=== PATIENT | female | born 1945 | race Caucasian/White ===

== ENCOUNTER 2017-05-06 20:22 | Emergency (ER) | payer MEDICARE, OTHER ==
[~2017-05-06 20:22] MED LIST: AMB5 PO; DEMA10T PO; DURICEF; DURICEF PO; FISH-EPA1000 MG PO; GOLD BOND TOP; HALF81 PO; KLOR-CON 1010 MEQ PO; LOP25 PO; M-END DM PO; MOBIC7.5 PO; NITROSTAT0.4 MG SL; NORCO1 TA1 PO; PRAVACHOL40 MG PO; PRIN5 PO; VITAINJ IM; VITAMIN D31000 UNIT PO; VITC500 PO; ZESTORETIC1 TA1 PO; ZETIA PO
[2017-05-06 22:12] LABS: BASOPHILS 0.4 %; BASOPHILS ABSOLUTE 0.03 10/3/uL (0.0-0.16); EOSINOPHILS 0.5 %; EOSINOPHILS ABSOLUTE 0.04 10/3/uL (0.0-0.53); HEMOGLOBIN 11.3 g/dL (12.0-16.0); IMMATURE GRANULOCYTES 6.7 %; IMMATURE GRANULOCYTES ABSOLUTE 0.55 10/3/uL (0.0-0.11); LYMPHOCYTES 12.5 %; LYMPHOCYTES ABSOLUTE 1.02 10/3/uL (0.67-4.30); MEAN CORPUS HGB CONC 34.2 g/dL (32.0-36.0); MEAN CORPUSCULAR HEMOGLOB 33.4 pg (26.0-34.0); MEAN CORPUSCULAR VOLUME 97.6 fL (80-100); MEAN PLATELET VOLUME 11.3 fL (9.2-13.0); MONOCYTES 17.9 %; MONOCYTES ABSOLUTE 1.46 10/3/uL (0.21-1.20); NEUTROPHILS ABSOLUTE 5.05 10/3/uL (2.02-8.40); RBC DISTRIBUTION WIDTH 14.1 % (12.0-16.0); RED CELL COUNT 3.38 10/6/uL (4.0-5.6); WHITE BLOOD CELLS 8.2 10/3/uL (4.5-10.5)
[2017-05-06 22:13] LABS: MANUAL DIFF NO %; PLATELET COUNT 154 10/3/uL (150-400)
[2017-05-06 22:26] LABS: A/G RATIO 0.8 (0.7-1.9); ALBUMIN 2.8 G/DL (3.5-5.0); ALKALINE PHOSPHATASE 114 U/L (45-117); BUN (BLOOD UREA NITROGEN) 8 MG/DL (6-23); CALCIUM, SERUM 8.5 MG/DL (8.5-10.4); CHLORIDE, SERUM 103 MMOL/L (96-112); CO2 (CARBON DIOXIDE) 28 MMOL/L (24-34); CREATININE 0.71 MG/DL (0.55-1.02); GFR AFRICAN AMERICAN 99 ML/MIN (>=60); GFR NON AFRICAN AMERICAN 86 ML/MIN (>=60); GLOBULIN 3.6 G/DL (2.5-4.1); GLUCOSE, SERUM 127 MG/DL (60-99); POTASSIUM, SERUM 3.8 MMOL/L (3.5-5.3); SGOT(AST) 39 U/L (5-40); SGPT(ALT) 30 U/L (5-65); SODIUM, SERUM 139 MMOL/L (135-148); TOTAL BILIRUBIN 0.5 MG/DL (0-1.2); TOTAL PROTEIN 6.4 G/DL (6.0-8.5)
[2017-05-06 22:34] LABS: BAND NEUTROPHILS 7 %; ER DIFF TAT 0 Hrs 26 Mins; IMMATURE GRANS ABSOLUTE (CALC) 0.08 10/3/uL (0.0-0.11); LYMPHOCYTES 9 %; LYMPHOCYTES ABSOLUTE (CALC) 0.74 10/3/uL (0.67-4.30); METAMYELOCYTES 1 %; MONOCYTES 16 %; MONOCYTES ABSOLUTE (CALC) 1.31 10/3/uL (0.21-1.20); NEUTROPHILS ABSOLUTE (CALC) 6.07 10/3/uL (2.02-8.40); PLATELET ESTIMATE ADQ (ADEQUATE); REACTIVE LYMPHS OCC (0-2%) (0-5%); SEGMENTED NEUTROPHIL (0) 67 %; TOTAL NUCLEATED CELLS 100; TOXIC GRANULATION 1+
[2017-05-06 22:35] LABS: RBC MORPHOLOGY NORM (NORMAL)
[2017-05-06 22:44] LABS: ASCORBIC ACID (UR NOT ORDER) 40 (NEG); BILIRUBIN, URINE NEGATIVE (NEG); ER URINALYSIS TAT 0 Hrs 13 Mins; KETONE, URINE TRACE MG/DL (NEG); LEUKOCYTE ESTERASE(NOT OR NEG (NEG); NITRITE (URINE) NEG (NEG); WBC (NOT ORDERED) (RFLEX) 14 (0-5)
[2017-07-23] MEDS ORDERED: ZETIA PO (15:17)
== END 2017-05-07 01:11 | disposition home or self-care (01) ==
LOC: ER 20:22
PROVIDERS: Emergency Medicine
DX: N39.0 Urinary tract infection, site not specified (principal); F17.200 Nicotine dependence, unspecified, uncomplicated; I10 Essential (primary) hypertension; C50.911 Malignant neoplasm of unspecified site of right female breast; E78.5 Hyperlipidemia, unspecified; Z88.8 Allergy status to other drugs, medicaments and biological substances; Z88.5 Allergy status to narcotic agent; Z79.82 Long term (current) use of aspirin; Z79.899 Other long term (current) drug therapy; Z86.718 Personal history of other venous thrombosis and embolism
CPT/HCPCS: 71010; 80053; 81001; 85025; 87040; 96374; 99284

== ENCOUNTER 2017-07-28 06:39 | Day surgery (SDC) | payer MEDICARE, OTHER ==
[2017-07-23 10:51] LABS: BASOPHILS 0.3 %; BASOPHILS ABSOLUTE 0.01 10/3/uL (0.0-0.16); EOSINOPHILS 1.6 %; EOSINOPHILS ABSOLUTE 0.06 10/3/uL (0.0-0.53); IMMATURE GRANULOCYTES 0.3 %; IMMATURE GRANULOCYTES ABSOLUTE 0.01 10/3/uL (0.0-0.11); LYMPHOCYTES 35.7 %; MEAN CORPUSCULAR HEMOGLOB 33.9 pg (26.0-34.0); MEAN CORPUSCULAR VOLUME 99.8 fL (80-100); MEAN PLATELET VOLUME 10.4 fL (9.2-13.0); MONOCYTES 12.6 %; MONOCYTES ABSOLUTE 0.46 10/3/uL (0.21-1.20); NEUTROPHILS 49.5 %; RBC DISTRIBUTION WIDTH 13.2 % (12.0-16.0); WHITE BLOOD CELLS 3.6 10/3/uL (4.5-10.5)
[2017-07-23 10:52] LABS: HEMATOCRIT 40.9 % (36.0-48.0); HEMOGLOBIN 13.9 g/dL (12.0-16.0); MANUAL DIFF NO %; PLATELET COUNT 205 10/3/uL (150-400)
[2017-07-23 11:00] LABS: A/G RATIO 0.8 (0.7-1.9); ALBUMIN 3.3 G/DL (3.5-5.0); BUN (BLOOD UREA NITROGEN) 10 MG/DL (6-23); CALCIUM, SERUM 9.3 MG/DL (8.5-10.4); CHLORIDE, SERUM 102 MMOL/L (96-112); CO2 (CARBON DIOXIDE) 29 MMOL/L (24-34); CREATININE 0.63 MG/DL (0.55-1.02); GFR AFRICAN AMERICAN 105 ML/MIN (>=60); GFR NON AFRICAN AMERICAN 90 ML/MIN (>=60); GLOBULIN 3.9 G/DL (2.5-4.1); GLUCOSE, SERUM 105 MG/DL (60-99); POTASSIUM, SERUM 3.9 MMOL/L (3.5-5.3); SGOT(AST) 33 U/L (5-40); SGPT(ALT) 32 U/L (5-65); SODIUM, SERUM 137 MMOL/L (135-148); TOTAL BILIRUBIN 0.4 MG/DL (0-1.2); TOTAL PROTEIN 7.2 G/DL (6.0-8.5)
[2017-07-23 11:01] LABS: ALKALINE PHOSPHATASE 81 U/L (45-117)
[~2017-07-28] VITALS: Ht 154.9 cm; Wt 83.0 kg
--- NOTE | ~2017-07-28 | OP ---
Record Of Operation [facility] [address] [place]. [address] NAME: GUNJAN MAR : 45 STATUS : [facility]#: [id number] AGE: 71 ADM/REG DATE : 07/28/17 MR#: [id number] REPORT SERV DATE: 08/09/17 DICTATED BY: RADHA PLATA DATE: 08/09/17 REPORT STATUS : Draft TRANSCRIBED BY: HEIDY DATE: 08/09/17 DATE OF PROCEDURE: 07/28/2017 PREOPERATIVE DIAGNOSIS: Right breast locally advanced breast cancer. POSTOPERATIVE DIAGNOSIS: Right breast locally advanced breast cancer. PROCEDURE: 1. Right breast simple mastectomy. 2. [place] lymph node biopsy. 3. Right axillary completion dissection. INDICATION FOR THE PROCEDURE: Ms. Mar is a 71-year-old female, with a history of a stage IV left breast cancer in 1997, treated with mastectomy, chemotherapy, and radiation. She has been diagnosed with a right breast cancer which is a grade 3, ER/MI positive, HER2 negative breast cancer with a high growth fraction. She was node positive on initial diagnosis. She underwent a portion of her chemotherapy neoadjuvantly, but was unable to tolerate the full therapy cycles. She has decided to move forward with surgery now. She presented for lymphoscintigraphy scan yesterday showing good uptake in the right axilla. OPERATIVE FINDINGS: After appropriate consent was noted on the chart, the patient was taken to the operating room in supine position. She was placed under general anesthesia without any complications. Her right chest wall and axilla were prepped and draped in sterile fashion. An incision was made in elliptical fashion to encompass the majority of the anterior skin on the chest wall, as well as the nipple-areolar complex. Sharp dissection was carried down to the level of breast parenchyma and flaps created in all directions to the extent of the breast parenchyma. Dissection was carried down to the level of the pectoralis major fascia which was taken off the muscle with the breast intact. The breast was divided from the axillary fat pad at the axillary tail, and it was marked with a stitch and sent for permanent pathology. The right axillary sentinel lymph node was taken that was grossly abnormal, and Pathology did note to have 3.1 cm of breast cancer in that lymph node. No external extension was seen, due to the fact that this patient had asked, but I did not perform an axillary dissection, I did feel for any other abnormal lymph nodes. They were felt to be at least two to three additional lymph nodes which were grossly abnormal. I did a limited dissection of the axillary fat pad. The axillary vein was found coursing in its normal anatomic position superiorly, and the thoracodorsal bundle and long thoracic nerve were spared. This was sent for permanent pathology without marking sutures. The wound was copiously irrigated with warm saline. Hemostasis was achieved. Local anesthetic was infiltrated into the muscle, skin, and soft tissue. The drain was placed in the inferior midaxillary line. The incision was closed in two layers of suture and the skin was cleansed and dried. Mastisol and Steri-Strips were placed on the skin. Incision burn fluff and a binder placed on the patient prior to awakening. At the end of the case all counts were correct. ESTIMATED BLOOD LOSS: 150 mL. Record Of Operation [address] [address] NAME: GUNJAN MAR CHASIDY : 45 STATUS : [facility] PAT#: [id number] AGE: 71 ADM/REG DATE : 07/28/17 MR#: [id number] REPORT SERV DATE: 08/09/17 DICTATED BY: RADHA PLATA DATE: 08/09/17 REPORT STATUS : Draft TRANSCRIBED BY: HEIDY DATE: 08/09/17 COMPLICATIONS: None. SPECIMEN: Right breast, right axillary sentinel lymph node x1, and right axillary content. SARA/HEIDY Radha Plata MD / [id number] CC: Radha Plata MD [facility] Dung Moreira M.D.
== END 2017-07-28 15:33 | disposition home or self-care (01) ==
LOC: NM 06:39 → SDC 06:39
PROVIDERS: Surgery Surgical Oncology
PROC: 0HBT0ZZ Excision of Right Breast, Open Approach (ICD-10-PCS; principal; 2017-07-28 07:45)
PROC: 07B50ZX Excision of Right Axillary Lymphatic, Open Approach, Diagnostic (ICD-10-PCS; 2017-07-28 07:45)
DX: C77.3 Secondary and unspecified malignant neoplasm of axilla and upper limb lymph nodes (principal); C50.811 Malignant neoplasm of overlapping sites of right female breast; I10 Essential (primary) hypertension; I25.2 Old myocardial infarction; F17.210 Nicotine dependence, cigarettes, uncomplicated; Z95.1 Presence of aortocoronary bypass graft; Z85.3 Personal history of malignant neoplasm of breast; Z90.12 Acquired absence of left breast and nipple; Z88.5 Allergy status to narcotic agent; Z88.8 Allergy status to other drugs, medicaments and biological substances; Z79.899 Other long term (current) drug therapy; Z98.51 Tubal ligation status; Z98.890 Other specified postprocedural states
CPT/HCPCS: 71020; 78195; 80053; 85025; 88307; 88333; 93005; A9541; J0690; J2270; J3010